=== PATIENT | male | born 1955 | race Caucasian/White ===

== ENCOUNTER 2016-11-23 15:39 | Outpatient (CLI) | payer OTHER | END 2016-11-23 15:40 | disposition home or self-care (01) | DX: I82.612 Acute embolism and thrombosis of superficial veins of left upper extremity (principal) ==

== ENCOUNTER 2016-12-24 08:05 | Outpatient (CLI) | payer OTHER | END 2016-12-24 08:06 | disposition home or self-care (01) | DX: E78.1 Pure hyperglyceridemia (principal); E29.1 Testicular hypofunction; E88.81 Metabolic syndrome and other insulin resistance ==

== ENCOUNTER 2017-04-18 10:33 | Outpatient (CLI) | payer OTHER | END 2017-04-18 10:34 | disposition home or self-care (01) | LOC: RT 10:33 | PROVIDERS: ATTEND Nurse Anesthetist, Certified Registered | DX: Z01.810 Encounter for preprocedural cardiovascular examination (principal); M70.21 Olecranon bursitis, right elbow | CPT/HCPCS: 93005 ==

== ENCOUNTER 2017-04-19 07:32 | Day surgery (SDC) | payer OTHER ==
[~2017-04-19 07:32] MED LIST: LACTATED RINGERS 1,000 ML IV ONE; ceFAZolin 2 GM/50 ML 50 ML IV ONE
[2017-04-19] MEDS ORDERED: PROPOFOL 200 MG/20 ML VIAL IVP ONE (08:25)
[2017-04-19] MEDS ORDERED: DEXAMETHASONE 4 MG/ML VIAL IVP ONE (08:25)
[2017-04-19] MEDS ORDERED: LIDOCAINE-MPF 2% 5 ML VIAL IM ONE (08:25)
[2017-04-19] MEDS ORDERED: ONDANSETRON 4 MG/2 ML VIAL IVP ONE (08:25)
[2017-04-19] MEDS ORDERED: fentaNYL 100 MCG/2 ML VIAL IVP ONE (08:25)
[2017-04-19] MEDS ORDERED: KETOROLAC 30 MG/ML VIAL IVP ONE (08:25)
[2017-04-19] MEDS ORDERED: MIDAZOLAM 2 MG/2 ML VIAL IVP ONE (08:25)
[2017-04-19] MEDS ORDERED: LIDOCAINE 1%-EPI 1:100000 20 ML MDV SUBQ ONE ×2 (08:38)
[2017-04-19] MEDS ORDERED: BUPIVACAINE 0.5% PF 30 ML VIAL SUBQ ONE ×2 (08:38)
[2017-04-19 10:25] VITALS: BP 128/78
--- NOTE | 2017-04-19 11:42 | OPERATIVE REPORT ---
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 POSTOPERATIVE DIAGNOSIS: Right elbow chronic olecranon bursitis with gout involvement and olecranon s pur. NAME OF PROCEDURE: Right elbow bursectomy and debridement of skin and soft tissue and bursal tissue w ith bony resection of olecranon spur. SURGEON: Rani Clay MD ANESTHESIA: General by Bertram. INDICATIONS FOR SURGERY: The patient is a 72-year-old male with chronic painful swelling of his right elbow and a nonresponse to conservative management. The patient also has tenderness in that area. He has a prior history of gout in his toe, but has not had known tophi or extraarticular gout. FINDINGS AT SURGERY: At bursectomy, the patient was found to have a gout infiltrated bursa with large clumps of white crystals in a toothpaste consistency. The patient's spur was small and was able to b e removed with a rongeur. DESCRIPTION OF OPERATIVE PROCEDURE: The patient was taken to the operating room, was given a general anesthetic. Tourniquet was placed on his upper arm, and his elbow and arm were sterilely prepped and draped in standard fashion. A curved incision was made around the olecranon area through skin only an d then scissors were used to define and develop a plane between the dermis and the bursa. There was v mariah little subcutaneous tissue in the area. The bursa was removed in its entirety, a rongeur being us ed also to remove small clumps of gouty material. An incision was made in the periosteum over the ole cranon to allow rongeur removal of the spur in that area. The area was flushed and cautery control bl eeding with the tourniquet deflated. Finally, closure was undertaken with 3-0 Vicryl subcutaneous and 4-0 Monocryl subcuticular. Sterile compressive dressings were applied. The patient was placed in a p osterior arm splint and then taken to the recovery room in stable condition. ESTIMATED BLOOD LOSS: Minimal. COMPLICATIONS: None. SPONGE AND NEEDLE COUNTS: Correct. JOB #: [id number] EXT JOB #:[id number]
== END 2017-04-19 07:33 | disposition home or self-care (01) ==
LOC: SDS 07:32
PROVIDERS: ATTEND Orthopaedic Surgery
PROC: 0PBK0ZZ Excision of Right Ulna, Open Approach (ICD-10-PCS; 2017-04-19)
PROC: 0MB30ZZ Excision of Right Elbow Bursa and Ligament, Open Approach (ICD-10-PCS; principal; 2017-04-19 08:30)
DX: M70.21 Olecranon bursitis, right elbow (principal); M10.9 Gout, unspecified; M77.8 Other enthesopathies, not elsewhere classified; I10 Essential (primary) hypertension; R06.81 Apnea, not elsewhere classified; K21.9 Gastro-esophageal reflux disease without esophagitis; G25.81 Restless legs syndrome; Z96.652 Presence of left artificial knee joint; F32.9 Major depressive disorder, single episode, unspecified; F41.9 Anxiety disorder, unspecified
CPT/HCPCS: 24105; 24120; J0690; J7120; 88305

== ENCOUNTER 2017-05-02 09:25 | Outpatient (CLI) | payer OTHER | END 2017-05-02 09:26 | disposition home or self-care (01) | LOC: SC 09:25 | PROVIDERS: ATTEND Internal Medicine Pulmonary Disease | DX: G47.33 Obstructive sleep apnea (adult) (pediatric) (principal); G47.61 Periodic limb movement disorder; G47.00 Insomnia, unspecified; R09.02 Hypoxemia | CPT/HCPCS: 99212; 99214 ==

== ENCOUNTER 2017-05-30 10:19 | Outpatient (CLI) | payer OTHER | END 2017-05-30 10:20 | disposition home or self-care (01) | LOC: SC 10:19 | PROVIDERS: ATTEND Internal Medicine Pulmonary Disease | DX: G47.33 Obstructive sleep apnea (adult) (pediatric) (principal); G25.81 Restless legs syndrome | CPT/HCPCS: 99212; 99213 ==

== ENCOUNTER 2017-06-22 09:50 | Outpatient (CLI) | payer OTHER ==
[2017-06-22 12:38] LABS: BASOPHILS # (AUTO) 0.1 10^3/uL (0.0-0.1); BASOPHILS % (AUTO) 1.3 %; EOSINOPHILS # (AUTO) 0.2 10^3/uL (0.0-0.7); EOSINOPHILS % (AUTO) 2.5 %; HCT - HEMATOCRIT 48.5 % (42.0-52.0); HGB - HEMOGLOBIN 16.7 g/dL (14.0-18.0); LYMPHOCYTES # (AUTO) 1.7 10^3/uL (1.5-3.5); LYMPHOCYTES % (AUTO) 27.4 %; MEAN CORPUSCULAR HEMOGLOBIN 31.9 pg (27.0-31.0); MEAN CORPUSCULAR HGB CONC 34.3 g/dL (32.0-36.0); MEAN CORPUSCULAR VOLUME 92.8 fL (80.0-94.0); MEAN PLATELET VOLUME 8.2 fL (7.4-11.4); MONOCYTES # (AUTO) 0.6 10^3/uL (0.0-1.0); MONOCYTES % (AUTO) 9.2 %; NEUTROPHILS # (AUTO) 3.7 10^3/uL (1.5-6.6); NEUTROPHILS % (AUTO) 59.6 %; NUCLEATED RED BLOOD CELLS AUTO 0.1 /100WBC; RED BLOOD COUNT 5.23 10^6/uL (4.70-6.10); RED CELL DISTRIBUTION WIDTH 13.8 % (12.0-15.0); UNCORRECTED WHITE BLOOD COUNT 6.2 x10^3/uL; WHITE BLOOD COUNT 6.2 x10^3/uL (4.8-10.8)
[2017-06-22 13:07] LABS: PSA TOTAL 1.49 ng/mL (0.000-2.000)
[2017-06-22 13:14] LABS: ALBUMIN/GLOBULIN RATIO 1.8 (1.0-2.2); BILIRUBIN,TOTAL 0.7 mg/dL (0.2-1.0); CALCIUM 9.5 mg/dL (8.5-10.3); CREATININE 0.9 mg/dL (0.6-1.2); HEMOGLOBIN A1C 0.71 g/dL; POTASSIUM 4.2 mmol/L (3.5-5.0); TOTAL PROTEIN 6.6 g/dL (6.7-8.2)
== END 2017-06-22 09:51 ==
LOC: LAB.WCP 09:50
PROVIDERS: ATTEND Family Medicine
DX: E88.81 Metabolic syndrome and other insulin resistance (principal); G25.81 Restless legs syndrome; E29.1 Testicular hypofunction
CPT/HCPCS: 36415; 80053; 82728; 83036; 83540; 84153; 84403; 84466; 85025

== ENCOUNTER 2017-06-30 09:23 | Outpatient (CLI) | payer OTHER | END 2017-06-30 09:24 | disposition home or self-care (01) | LOC: SC 09:23 | PROVIDERS: ATTEND Internal Medicine Pulmonary Disease | DX: G47.33 Obstructive sleep apnea (adult) (pediatric) (principal); G25.81 Restless legs syndrome | CPT/HCPCS: 99212; 99213 ==

== ENCOUNTER 2017-08-12 04:23 | Emergency (ER) | payer OTHER ==
[2017-08-12] MEDS ORDERED: BUPIVACAINE 0.5% PF 30 ML VIAL ONE (04:53)
[2017-08-12 05:24] LABS: CC,BF RBC 28154 /mm^3
--- NOTE | 2017-08-12 05:24 | ED Physician Documentation ---
PD HPI UPPER EXT INJURY - Stated complaint Stated Complaint: R ELBOW PX - Chief complaint Chief Complaint: Wound - History obtained from History obtained from: Patient - History of Present Illness Location: Right, Elbow Where injury occurred: Home Timing - onset: Chronic Timing - details: Gradual onset, Still present Improved by: Immobilization Worsened by: Moving, Palpating Associated symptoms: Swelling Contributing factors: Prior ortho surgery. No: Prosthetic joint Similar symptoms before: Work up / diagnostics, Treatment, Follow up - Additonal information Additional information: Patient is a 62 year old male with a history of bursitis who is presenting to the emergency department for elbow pain. Patient has had recurrent bursitis and has had surgery on his elbow for bursa removal. Patient states that over the last few days he has had worsening pain and swelling in his joint so he came in for evaluation. Review of Systems Constitutional: denies: Fever, Chills Eyes: reports: Reviewed and negative Ears: reports: Reviewed and negative Nose: reports: Reviewed and negative Throat: reports: Reviewed and negative Cardiac: denies: Chest pain / pressure GI: denies: Nausea, Vomiting Skin: reports: Rash Musculoskeletal: reports: Joint pain, Joint swelling Neurologic: denies: Generalized weakness, Focal weakness, Numbness Immunocompromised: denies: Immunocompromised PD PAST MEDICAL HISTORY - Past Medical History Past Medical History: Yes Cardiovascular: Hypertension Respiratory: Sleep apnea Neuro: None Endocrine/Autoimmune: None GI: None : None HEENT: None, Chronic hearing loss Psych: None Musculoskeletal: Osteoarthritis Derm: Other Other Past Medical History: Bursitis - Past Surgical History Past Surgical History: Yes General: Hiatal hernia repair Ortho: Knee replacement - Present Medications Home Medications: Ambulatory Orders Medication Instructions Recorded Confirmed Ascorbic Acid/Bioflavonoids [Vit 1 each PO DAILY 03/20/13 08/12/17 C-Bioflavonoids Tab SA] Fenofibrate Nanocrystallized 160 mg PO QDAC 03/20/13 08/12/17 [Triglide] Hydrocodone/Acetaminophen [Vicodin 1 each PO Q6H PRN 03/20/13 08/12/17 Hp 10-300 mg Tablet] Metoprolol/Hydrochlorothiazide 1 each PO DAILY 03/20/13 08/12/17 [Metoprolol-Hctz 50-25 mg Tab] Multivits-Min/FA/Lycopene/Lut 1 each PO DAILY 03/20/13 08/12/17 [Centrum Silver Tablet] Pramipexole Di-HCl [Mirapex] 1 mg PO QDAC 03/20/13 08/12/17 Testosterone [Fortesta] 40 gm TD DAILY 03/20/13 08/12/17 Methylphenidate HCl [Ritalin] 30 mg ORAL DAILY 10/24/16 08/12/17 Esomeprazole Magnesium [Nexium] 40 mg PO BID 04/18/17 08/12/17 Gabapentin 300 mg PO TID 08/12/17 08/12/17 Hydrocodone/Acetaminophen 1 - 2 each PO Q6H PRN #7 tablet 08/12/17 [Hydrocodon-Acetaminophen 5-325] - Allergies Allergies/Adverse Reactions: Allergies Allergy/AdvReac Type Severity Reaction Status Date / Time No Known Drug Allergies Allergy Verified 08/12/17 04:28 - Social History Does the pt smoke?: No Smoking Status: Never smoker Does the pt drink ETOH?: Yes Does the pt have substance abuse?: No - Immunizations Immunizations are current?: Yes - POLST Patient has POLST: No PD ED PE NORMAL - Vitals Vital signs reviewed: Yes - General General: Alert and oriented X 3, No acute distress - HEENT HEENT: Atraumatic, PERRL - Neck Neck: Supple, no meningeal sign - Cardiac Cardiac: RRR, No murmur - Respiratory Respiratory: No respiratory distress - Abdomen Abdomen: Non distended - Neuro Neuro: Alert and oriented X 3, No motor deficit, No sensory deficit, Normal speech - Psych Psych: Normal mood PD ED PE EXPANDED - Extremities Extremities: Right elbow (tenderness and swelling of right elbow) Results - Vitals Vitals: Vital Signs - 24 hr 08/12/17 04:25 Temperature 387.0 C H Heart Rate 81 Respiratory 18 Rate Blood Pressure 158/85 H O2 Saturation 96 Oxygen O2 Source [With Activity] Room air O2 Source Room air - Labs Labs: Laboratory Tests 08/12/17 05:00 Fluid Source SYNOVIAL Fluid Color RED Fluid Clarity HAZY Fluid WBC 1881 Fluid RBC 10621 Procedures - Arthrocentesis Joint: Elbow Preparation: Sterile prep and drape, Ultrasound used Anesthesia: Marcaine 0.5% Fluid: Sent for cell count, Sent for crystals, Sent for culture, Sent for gram stain Aftercare: No complications, Patient tolerated well PD MEDICAL DECISION MAKING - ED course Complexity details: reviewed old records, reviewed results, re-evaluated patient , considered differential, d/w patient ED course: Patient was seen and examined at bedside. elbow was tapped as described above. there was no sign of septic joint. Patient required no further work up and was stable for discharge with outpatient follow up. Departure - Departure Disposition: 01 Home, Self Care Clinical Impression: Bursitis of right elbow Condition: Good Instructions: ED Bursitis Elbow Olecranon Follow-Up: Juan Christiansen MD [Provider Admit Priv/Credential] - Prescriptions: Hydrocodone/Acetaminophen [Hydrocodon-Acetaminophen 5-325] 1 - 2 each PO Q6H PRN #7 tablet PRN Reason: pain Comments: Your symptoms today are likely being caused by bursitis. there is no sign of infection at this time. You will need to follow up with the orthopedic group for further evaluation and care. You can continue with your current pain management.
[2017-08-12] MEDS ORDERED: oxyCOD/ACETAMIN 5 MG/325 MG TABLET PO STA (05:32)
[2017-08-12] MEDS ORDERED: oxyCOD/ACETAMIN 5 MG/325 MG TABLET PO ONE (05:39)
[2017-08-12 05:41] LABS: BF CLARITY HAZY; BF COLOR RED
[2017-08-12 05:56] LABS: LYMPHOCYTES %,BODY FLUID 12; MONOCYTES %,BODY FLUID 25 %; NEUTROPHILS %, BF 63 %
[2017-08-12 06:00] VITALS: BP 114/65
== END 2017-08-12 05:57 | disposition home or self-care (01) ==
LOC: ED 04:23
DX: M70.31 Other bursitis of elbow, right elbow (principal); I10 Essential (primary) hypertension; Z96.659 Presence of unspecified artificial knee joint
CPT/HCPCS: 20605; 87070; 87205; 89051; 89060; 99283; A9270

== ENCOUNTER 2017-09-27 08:41 | Outpatient (CLI) | payer OTHER | END 2017-09-27 08:42 | disposition home or self-care (01) | LOC: SC 08:41 | PROVIDERS: ATTEND Nurse Practitioner Family | DX: Z53.9 Procedure and treatment not carried out, unspecified reason (principal) ==

== ENCOUNTER 2017-10-19 14:53 | Outpatient (CLI) | payer OTHER | END 2017-10-19 14:54 | disposition home or self-care (01) | LOC: SC 14:53 | PROVIDERS: ATTEND Nurse Practitioner Family | DX: G47.33 Obstructive sleep apnea (adult) (pediatric) (principal) | CPT/HCPCS: 99212; 99214 ==

== ENCOUNTER 2017-12-09 08:23 | Outpatient (CLI) | payer OTHER ==
[2017-12-09 12:27] LABS: BASOPHILS # (AUTO) 0.1 10^3/uL (0.0-0.1); EOSINOPHILS # (AUTO) 0.2 10^3/uL (0.0-0.7); EOSINOPHILS % (AUTO) 3.7 %; HGB - HEMOGLOBIN 16.6 g/dL (14.0-18.0); LYMPHOCYTES # (AUTO) 1.9 10^3/uL (1.5-3.5); LYMPHOCYTES % (AUTO) 30.2 %; MEAN CORPUSCULAR HGB CONC 35.7 g/dL (32.0-36.0); MEAN CORPUSCULAR VOLUME 89.7 fL (80.0-94.0); MEAN PLATELET VOLUME 7.9 fL (7.4-11.4); MONOCYTES # (AUTO) 0.6 10^3/uL (0.0-1.0); MONOCYTES % (AUTO) 10.1 %; NEUTROPHILS # (AUTO) 3.4 10^3/uL (1.5-6.6); PLT - PLATELET COUNT 228 10^3/uL (130-450); RED BLOOD COUNT 5.18 10^6/uL (4.70-6.10); RED CELL DISTRIBUTION WIDTH 13.3 % (12.0-15.0); WHITE BLOOD COUNT 6.2 x10^3/uL (4.8-10.8)
[2017-12-09 12:30] LABS: ALBUMIN 4.2 g/dL (3.2-5.5); ALBUMIN/GLOBULIN RATIO 1.8 (1.0-2.2); ALKALINE PHOSPHATASE 43 IU/L (42-121); ALT ALANINE AMINOTRANSFERASE 52 IU/L (10-60); AST ASPARTATE AMINOTRANSFERASE 30 IU/L (10-42); BILIRUBIN,TOTAL 0.8 mg/dL (0.2-1.0); BUN - BLOOD UREA NITROGEN 14 mg/dL (6-20); CALCIUM 8.7 mg/dL (8.5-10.3); CARBON DIOXIDE - CO2 29 mmol/L (21-32); CHLORIDE 102 mmol/L (101-111); CHOLESTEROL 199 mg/dL; GFR - MDRD 76 (>89); GLUCOSE 110 mg/dL (70-100); HDL CHOLESTEROL 33 mg/dL; LDL CHOLESTEROL,CALCULATED 88 mg/dL; LDL/HDL RATIO 2.7 (<3.6); SODIUM 136 mmol/L (135-145); TOTAL PROTEIN 6.6 g/dL (6.7-8.2); VLDL CHOLESTEROL 78 mg/dL
== END 2017-12-09 08:24 | disposition home or self-care (01) ==
LOC: LAB.WCP 08:23
PROVIDERS: ATTEND Family Medicine
DX: E78.1 Pure hyperglyceridemia (principal); I10 Essential (primary) hypertension
CPT/HCPCS: 36415; 80053; 80061; 83721; 85025

== ENCOUNTER 2018-01-16 09:27 | Outpatient (CLI) | payer OTHER | END 2018-01-16 09:28 | disposition home or self-care (01) | LOC: SC 09:27 | PROVIDERS: ATTEND Nurse Practitioner Family | DX: G47.33 Obstructive sleep apnea (adult) (pediatric) (principal); G47.00 Insomnia, unspecified | CPT/HCPCS: 99212; 99214 ==

== ENCOUNTER 2018-01-26 09:11 | Day surgery (SDC) | payer OTHER ==
[2018-01-26] MEDS ORDERED: LACTATED RINGERS 1,000 ML IV ONE (09:23)
[2018-01-26] MEDS ORDERED: fentaNYL 250 MCG/5 ML VIAL IVP ONE (10:14)
[2018-01-26] MEDS ORDERED: MIDAZOLAM 2 MG/2 ML VIAL IVP ONE (10:14)
[2018-01-26 11:42] VITALS: BP 142/81
== END 2018-01-26 09:12 | disposition home or self-care (01) ==
LOC: SDS 09:11
PROVIDERS: ATTEND Surgery
PROC: 0DB68ZX Excision of Stomach, Via Natural or Artificial Opening Endoscopic, Diagnostic (ICD-10-PCS; 2018-01-26)
PROC: 0DBK8ZZ Excision of Ascending Colon, Via Natural or Artificial Opening Endoscopic (ICD-10-PCS; principal; 2018-01-26 10:30)
PROC: 0DBN8ZZ Excision of Sigmoid Colon, Via Natural or Artificial Opening Endoscopic (ICD-10-PCS; 2018-01-26 10:30)
DX: Z12.11 Encounter for screening for malignant neoplasm of colon (principal); D12.2 Benign neoplasm of ascending colon; D12.5 Benign neoplasm of sigmoid colon; K64.8 Other hemorrhoids; K64.4 Residual hemorrhoidal skin tags; K21.9 Gastro-esophageal reflux disease without esophagitis; K44.9 Diaphragmatic hernia without obstruction or gangrene; G47.30 Sleep apnea, unspecified; F41.9 Anxiety disorder, unspecified; Z87.891 Personal history of nicotine dependence
CPT/HCPCS: 43239; 45380; J3010; J7120

== ENCOUNTER 2018-02-21 08:47 | Outpatient (CLI) | payer OTHER | END 2018-02-21 08:48 | disposition home or self-care (01) | LOC: SC 08:47 | PROVIDERS: ATTEND Nurse Practitioner Family | DX: G47.33 Obstructive sleep apnea (adult) (pediatric) (principal) | CPT/HCPCS: 99212; 99214 ==

== ENCOUNTER 2018-06-29 14:42 | Outpatient (CLI) | payer OTHER ==
--- NOTE | 2018-06-29 22:02 | Ultrasound Report ---
Procedure Date: 06/29/2018 Accession Number: [id number] / [id number] Procedure: US - Duplex Lwr Ext Arterial Bilat CPT Code: FULL RESULT: EXAM: Bilateral Lower Extremity Arterial Doppler Ultrasound EXAM DATE: 06/29/2018 05:00 PM. CLINICAL HISTORY: Peripheral vascular disease, unspecified. Former smoker. Abnormal lipids. TECHNIQUE: Real-time sonographic vascular imaging was performed by the seasonal sales associate, utilizing color-flow, Doppler flow, and spectral analysis. Multiple client services representative static images were saved for review. COMPARISON: None. FINDINGS: Right Leg: CLASS 1 OWNER OPERATOR: PSV 102 cm/sec. Tri waveform. PSFA: PSV 78 cm/sec. Tri waveform. MSFA: PSV 67 cm/sec. Tri waveform. DSFA: PSV 82 cm/sec. Tri waveform. PFA: PSV 71 cm/sec. Tri waveform. POP: PSV 51 cm/sec. Tri waveform. SHEEBA: PSV 70 cm/sec. Tri waveform. BEAN SNIPPER: PSV 57 cm/sec. Tri waveform. PER: PSV 54 cm/sec. Tri waveform. DPA: PSV 51 cm/sec. Tri waveform. Left Leg: CLASS 1 OWNER OPERATOR: PSV 90 cm/sec. Tri waveform. PSFA: PSV 63 cm/sec. Tri waveform. MSFA: PSV 65 cm/sec. Tri waveform. DSFA: PSV 96 cm/sec. Tri waveform. PFA: PSV 55 cm/sec. Tri waveform. POP: PSV 55 cm/sec. Tri waveform. SHEEBA: PSV 65 cm/sec. Tri waveform. BEAN SNIPPER: PSV 89 cm/sec. Tri waveform. PER: PSV 68 cm/sec. Tri waveform. DPA: PSV 55 cm/sec. Tri waveform. IMPRESSION: No evidence of hemodynamically significant arterial stenosis in right or left lower extremities. RADIA
== END 2018-06-29 14:43 | disposition home or self-care (01) ==
LOC: DI 14:42
PROVIDERS: ATTEND Family Medicine
DX: I73.9 Peripheral vascular disease, unspecified (principal)
CPT/HCPCS: 93925

== ENCOUNTER 2018-07-31 14:05 | Outpatient (CLI) | payer OTHER | END 2018-07-31 14:06 | disposition critical access hospital (66) | LOC: EMS 14:05 | PROVIDERS: ATTEND Surgery | DX: R42 Dizziness and giddiness (principal); R11.2 Nausea with vomiting, unspecified; R61 Generalized hyperhidrosis | CPT/HCPCS: A0425; A0427 ==

== ENCOUNTER 2018-07-31 14:38 | Emergency (ER) | payer OTHER ==
[2018-07-31] MEDS ORDERED: ONDANSETRON 4 MG/2 ML VIAL IVP STA (14:44)
[2018-07-31] MEDS ORDERED: SODIUM CHLORIDE 0.9% 1,000 ML IV ONE (14:44)
[2018-07-31] MEDS: MECLIZINE 12.5 MG TABLET PO STA ×2 (14:59→18:19)
[2018-07-31 15:37] LABS: BASOPHILS # (AUTO) 0.1 10^3/uL (0.0-0.1); BASOPHILS % (AUTO) 0.8 %; EOSINOPHILS # (AUTO) 0.1 10^3/uL (0.0-0.7); EOSINOPHILS % (AUTO) 1.2 %; HGB - HEMOGLOBIN 15.7 g/dL (14.0-18.0); LYMPHOCYTES # (AUTO) 1.4 10^3/uL (1.5-3.5); LYMPHOCYTES % (AUTO) 15.3 %; MEAN CORPUSCULAR HEMOGLOBIN 32.4 pg (27.0-31.0); MEAN CORPUSCULAR HGB CONC 34.7 g/dL (32.0-36.0); MEAN CORPUSCULAR VOLUME 93.3 fL (80.0-94.0); MEAN PLATELET VOLUME 7.8 fL (7.4-11.4); MONOCYTES # (AUTO) 0.6 10^3/uL (0.0-1.0); MONOCYTES % (AUTO) 6.3 %; NEUTROPHILS # (AUTO) 6.8 10^3/uL (1.5-6.6); NEUTROPHILS % (AUTO) 76.4 %; PLT - PLATELET COUNT 228 10^3/uL (130-450); RED BLOOD COUNT 4.86 10^6/uL (4.70-6.10); RED CELL DISTRIBUTION WIDTH 13.5 % (12.0-15.0); WHITE BLOOD COUNT 8.9 x10^3/uL (4.8-10.8)
[2018-07-31 15:46] LABS: CALCIUM 9.3 mg/dL (8.5-10.3)
--- NOTE | 2018-07-31 16:02 | ED Physician Documentation ---
History of Present Illness - Stated complaint Stated Complaint: DIZZY - Chief complaint Chief Complaint: Cardiac - Additonal information Additional information: hx from pt 63 male developed severe vertigo with NV and diaphoresis at noon called 911 and en route developed CP as well no hx same no focal numbness or weakness EKG [employer] showed very slight ST elev but upon arrival in ED EKG by EMS and ER very similar to prior Review of Systems Constitutional: reports: Sweats. denies: Fever, Chills Cardiac: reports: Chest pain / pressure. denies: Palpitations Respiratory: denies: Dyspnea GI: reports: Nausea, Vomiting. denies: Abdominal Pain : denies: Dysuria Neurologic: reports: Other (vertigo). denies: Focal weakness, Numbness, Difficulty speaking, Headache Endocrine: denies: Easy bruising / bleeding Immunocompromised: denies: Immunocompromised PD PAST MEDICAL HISTORY - Past Medical History Cardiovascular: Hypertension Respiratory: Sleep apnea Endocrine/Autoimmune: None GI: None : None HEENT: None, Chronic hearing loss Psych: None Musculoskeletal: Osteoarthritis Derm: Other - Past Surgical History Past Surgical History: Yes General: Hiatal hernia repair Ortho: Knee replacement - Present Medications Home Medications: Ambulatory Orders Medication Instructions Recorded Confirmed Ascorbic Acid/Bioflavonoids [Vit 1 each PO DAILY 03/20/13 01/25/18 C-Bioflavonoids Tab SA] Fenofibrate Nanocrystallized 160 mg PO QDAC 03/20/13 01/25/18 [Triglide] Hydrocodone/Acetaminophen [Vicodin 1 each PO Q6H PRN 03/20/13 01/26/18 Hp 10-300 mg Tablet] Multivits-Min/FA/Lycopene/Lut 1 each PO DAILY 03/20/13 01/25/18 [Centrum Silver Tablet] Pramipexole Di-HCl [Mirapex] 1 mg PO QDAC 03/20/13 01/25/18 Testosterone [Fortesta] 40 gm TD DAILY 03/20/13 01/25/18 Gabapentin 300 mg PO TID 08/12/17 01/25/18 Magnesium Citrate 07/31/18 Meclizine [Antivert] 25 mg PO Q6H PRN #20 tablet 07/31/18 Ondansetron Odt [Zofran] 4 mg TL Q6H PRN #10 tablet 07/31/18 Pantoprazole [Protonix] 40 mg PO 07/31/18 Pravastatin [Pravachol] 0 mg 07/31/18 Tadalafil [Cialis] 5 mg PO 07/31/18 buPROPion [Wellbutrin Sr] 07/31/18 hydrOXYzine pamoate [Hydroxyzine 07/31/18 Pamoate] - Allergies Allergies/Adverse Reactions: Allergies Allergy/AdvReac Type Severity Reaction Status Date / Time No Known Drug Allergies Allergy Verified 07/31/18 14:51 - Social History Does the pt smoke?: No Smoking Status: Never smoker Does the pt drink ETOH?: Yes Does the pt have substance abuse?: No - Immunizations Immunizations are current?: Yes - POLST Patient has POLST: No PD ED PE NORMAL - Vitals Vital signs reviewed: Yes - General General: Alert and oriented X 3 - HEENT HEENT: PERRL, EOMI (but severe vertigo with EOMI, prefers eyes closed), Ears normal - Neck Neck: Supple, no meningeal sign - Cardiac Cardiac: RRR - Respiratory Respiratory: No respiratory distress - Neuro Neuro: Alert and oriented X 3, distributing clerk 2-12 intact, No motor deficit Eye Opening: Spontaneous Motor: Obeys Commands Verbal: Oriented GCS Score: 15 Results - Vitals Vitals: Vital Signs - 24 hr 07/31/18 07/31/18 14:40 15:40 Temperature 35.9 C L Heart Rate 69 70 Respiratory 30 H 20 Rate Blood Pressure 145/115 H 139/92 H O2 Saturation 97 97 Oxygen O2 Source [] Room air O2 Source Room air - EKG (time done) 1447 Rate: Rate (enter#) (66) Rhythm: NSR [place]: Normal Intervals: Normal [place] QRS: Normal Ischemia: Normal ST segments, Other (mild ST elevprecordial concave up and similar to prior) - Labs Labs: Laboratory Tests 07/31/18 07/31/18 07/31/18 15:10 15:10 15:10 WBC 8.9 RBC 4.86 Hgb 15.7 Hct 45.3 MCV 93.3 MCH 32.4 H MCHC 34.7 RDW 13.5 Plt Count 228 MPV 7.8 Neut # (Auto) 6.8 H Lymph # (Auto) 1.4 L [place] # (Auto) 0.6 Eos # (Auto) 0.1 Baso # (Auto) 0.1 Absolute Nucleated RBC 0.01 Nucleated RBC % 0.1 Sodium 140 Potassium 4.3 Chloride 106 Carbon Dioxide 27 Anion Gap 7.0 BUN 14 Creatinine 1.0 Estimated GFR (MDRD) 76 L Glucose 139 H Calcium 9.3 Troponin I < 0.04 07/31/18 16:50 WBC RBC Hgb Hct MCV MCH MCHC RDW Plt Count MPV Neut # (Auto) Lymph # (Auto) [place] # (Auto) Eos # (Auto) Baso # (Auto) Absolute Nucleated RBC Nucleated RBC % Sodium Potassium Chloride Carbon Dioxide Anion Gap BUN Creatinine Estimated GFR (MDRD) Glucose Calcium Troponin I < 0.04 PD MEDICAL DECISION MAKING - ED course ED course: sx much improved with meclizine, no other neuro sx, likely periph has CVP en route EKG unchanged trop 1 neg, will check a 3 hr 2nd trop neg and all sx eleno will dc with meclizine and zofran - Sepsis Event Vital Signs: Vital Signs - 24 hr 07/31/18 07/31/18 14:40 15:40 Temperature 35.9 C L Heart Rate 69 70 Respiratory 30 H 20 Rate Blood Pressure 145/115 H 139/92 H O2 Saturation 97 97 Oxygen O2 Source [] Room air O2 Source Room air Departure - Departure Disposition: 01 Home, Self Care Clinical Impression: Vertigo Chest pain Qualifiers: Chest pain type: unspecified Qualified Code(s): R07.9 - Chest pain, unspecified Condition: Good Instructions: ED Chest Pain Atypical Unkn Cause, Meclizine, ED BPV Vertigo Follow-Up: Lizzy Rodriguez DO [Primary Care Provider] - Prescriptions: Meclizine [Antivert] 25 mg PO Q6H PRN #20 tablet PRN Reason: Dizziness Ondansetron Odt [Zofran] 4 mg TL Q6H PRN #10 tablet PRN Reason: Nausea / Vomiting Comments: Your labs were fine Your EKG was unchanged from previous EKGs and the blood tests for a heart attack were negative Besides the dizziness you did not have other signs of a stroke and the symptoms resolved with meclizine - so i think this dizziness is due to a inner ear problem not a brain problem. Since you are feeling better now and your work up is reassuring, I think it is safe for you to go home I have prescribed more medication for nausea and dizziness. You should not drive for at least three days - until all the dizziness has resolved Return if worse in any way Forms: Activity restrictions
[2018-07-31] MEDS ORDERED: MECLIZINE 12.5 MG TABLET PO STA (18:01)
--- NOTE | 2018-07-31 18:41 | CT Report ---
Reason: vertigo Procedure Date: 07/31/2018 Accession Number: [id number] / [id number] Procedure: CT - Head W/O CPT Code: FULL RESULT: EXAM: CT HEAD EXAM DATE: 07/31/2018 06:19 PM. CLINICAL HISTORY: Vertigo. COMPARISON: None. TECHNIQUE: Multiaxial CT images were obtained from the foramen magnum to the vertex. Reformats: Sagittal and coronal. IV contrast: None. In accordance with CT protocol optimization, one or more of the following dose reduction techniques were utilized for this exam: automated exposure control, adjustment of mA and/or KV based on patient size, or use of iterative reconstructive technique. FINDINGS: Parenchyma: No intraparenchymal hemorrhage. No evidence of mass, midline shift, or CT findings of infarction. Aranda-white differentiation is distinct. Extraaxial Spaces: Normal for age. No subdural or epidural collections identified. Ventricles: Normal in size and position. Sinuses and Orbits: Imaged paranasal sinuses, orbits, and mastoids show no significant abnormality. Bones: No evidence of fracture or calvarial defect. Other: None. IMPRESSION: No acute intracranial CT abnormality. RADIA
[2018-07-31 19:14] VITALS: BP 134/95
== END 2018-07-31 19:50 | disposition home or self-care (01) ==
LOC: ED 14:38
DX: R42 Dizziness and giddiness (principal); R07.9 Chest pain, unspecified; R11.2 Nausea with vomiting, unspecified; I10 Essential (primary) hypertension
CPT/HCPCS: 36415; 70450; 80048; 84484; 85025; 93005; 96361; 96374; 99284; A9270

== ENCOUNTER 2018-11-20 08:00 | Outpatient (CLI) | payer OTHER | END 2018-11-20 23:59 | disposition home or self-care (01) | LOC: LAB.WCP 08:00 | PROVIDERS: ATTEND Family Medicine | DX: R06.02 Shortness of breath (principal) | CPT/HCPCS: 36415; 85379 ==

== ENCOUNTER 2018-12-12 08:52 | Outpatient (CLI) | payer OTHER ==
--- NOTE | 2018-12-12 10:22 | MRI Report ---
Reason: CERVICAL RADICULOPATHY,LEFT Procedure Date: 12/12/2018 Accession Number: [id number] / [id number] Procedure: MRI - Cervical Spine W/O CPT Code: FULL RESULT: EXAM: MRI CERVICAL SPINE WITHOUT CONTRAST EXAM DATE: 12/12/2018 09:40 AM. CLINICAL HISTORY: Neck pain. Cervical radiculopathy on the left. Neck pain radiates to the left upper extremity. COMPARISONS: CERVICAL SPINE W/O 07/25/2016 10:14 PM. TECHNIQUE: Multiplanar, multisequence T1-weighted and fluid-sensitive sequences of the cervical spine without contrast. Other: None. FINDINGS: Neurologic Structures: The visualized posterior fossa structures are unremarkable. No signal abnormality in the visualized spinal cord. Alignment: Slight degenerative retrolisthesis of C3 on C4. Bone Marrow: Vertebral body heights are maintained. Minimal degenerative endplate signal changes at C5-C6. No acute marrow edema. Interspace Levels/Facets: C1-C2: Unremarkable. C2-C3: Unremarkable. C3-C4: Mildly narrowed disk space. Broad-based posterior disk protrusion indents the ventral thecal sac. Mild central stenosis. Degenerative foraminal stenosis is minimal on the right but at least moderate on the left from asymmetric predominantly left side uncinate process spurring and facet hypertrophy with possible additional asymmetric left intraforaminal disk protrusion. C4-C5: Mild degenerative disk disease. Minimal facet arthropathy. Broad-based disk bulge. Ventral thecal sac indentation but no high-grade central stenosis or cord compression. Patent right neural foramen. At least moderate if not severe foraminal stenosis on the left is present from asymmetric left intraforaminal disk protrusion with osteophyte. C5-C6: Moderate degenerative disk disease. Mild anterior and posterior marginal spurring. Shallow broad-based disk bulge. Mild central stenosis with ventral thecal sac effacement but no cord compression or displacement. Moderate to severe bilateral foraminal stenosis primarily from uncinate process spurring accompanied by a broad-based bulge. Minimal facet arthropathy. C6-C7: Moderate degenerative disk disease. Mild marginal spurring. Broad-based disk bulge. Mild ventral thecal sac indentation. Central stenosis is minimal. No cord impingement. Asymmetric foraminal stenosis, minimal on the right but moderate on the left, asymmetric left intraforaminal disk protrusion with osteophyte is present. C7-T1: Intact disk space. No disk herniation or significant stenosis. Mild facet arthropathy. Musculature: No significant asymmetry or acute edema. Other: No prevertebral soft tissue edema. IMPRESSION: 1. Minimal to mild multilevel central canal stenosis, most prominent at C3-C4 but without evidence for significant cord deformity or signal abnormality. 2. Multilevel degenerative disk disease most severe at C5-C6 and C6-C7. 3. Multilevel degenerative foraminal stenosis is present, especially prominent on the left at C3-C4, on the left at C4-C5, bilaterally at C5-C6, and on the left at C6-C7. RADIA
== END 2018-12-12 08:53 | disposition home or self-care (01) ==
LOC: DI 08:52
PROVIDERS: ATTEND Family Medicine
DX: M50.21 Other cervical disc displacement, high cervical region (principal); M50.31 Other cervical disc degeneration, high cervical region; M48.02 Spinal stenosis, cervical region; M47.9 Spondylosis, unspecified; M43.12 Spondylolisthesis, cervical region
CPT/HCPCS: 72141

== ENCOUNTER 2019-01-15 09:46 | Outpatient (CLI) | payer OTHER ==
--- NOTE | 2019-01-15 14:58 | MRI Report ---
Reason: THORACIC SPINE PAIN Procedure Date: 01/15/2019 Accession Number: [id number] / [id number] Procedure: MRI - Thoracic Spine W/O CPT Code: FULL RESULT: EXAM: MRI THORACIC SPINE WITHOUT CONTRAST EXAM DATE: 01/15/2019 11:44 AM. CLINICAL HISTORY: Thoracic spine pain. COMPARISONS: T-SPINE 04/06/2007 7:58 AM. TECHNIQUE: Multiplanar, multisequence T1-weighted and fluid-sensitive sequences of the thoracic spine from C7 to L1 without contrast. Other: None. FINDINGS: Spinal Canal: Sharply demarcated central cord fluid signal linear structure centered at T12 measuring about 36 mm in length craniocaudal with maximal diameter of 2 mm. Alignment: No interval change. Bone Marrow: Stable relatively hypointense rounded approximately 10 mm region of central T8 body marrow, unchanged from prior, likely an incidental finding, potentially an atypical hemangioma. Thoracic vertebral body heights are maintained. No other evidence for acute or pathologic appearing marrow signal changes. Disk Levels/Facets: C7-T1: Unremarkable. T1-T2: Mild facet arthropathy. No significant stenosis. T2-T3: Mild facet arthropathy. Probable small shallow disk protrusion on the right but no significant stenosis. T3-T4: Minimal facet arthropathy. No stenosis. T4-T5: Unremarkable. T5-T6: Stable small posterior disk protrusion on the right but no significant or progressive stenosis. T6-T7: Unremarkable. T7-T8: Shallow broad-based disk bulge. No focal extrusion or significant stenosis. T8-T9: Progressive but chronic anterior marginal spurring. Mild right and moderate left facet arthropathy. No focal disk extrusion or stenosis. T9-T10: Mild degenerative disease and facet arthropathy. Broad-based posterior disk protrusion with osteophyte. Mild thecal sac indentation but no significant central stenosis or cord impingement. Mild foraminal stenosis. T10-T11: Unremarkable. T11-T12: Mild facet arthropathy. No stenosis. T12-L1: Unremarkable. Musculature: No acute abnormality. Other: None. IMPRESSION: 1. Thin linear central cord fluid signal collection centered at T12. This may be a small syrinx cavity. Ventriculus terminalis may also be considered. Cord edema is less likely. More complete evaluation of the cord which may contain a syrinx could be offered with contrast-enhanced thoracic spine MRI. 2. Mild chronic-appearing degenerative changes at multiple levels, these findings are progressive for example at T8-T9 and T9-T10 but there is no evidence for significant stenosis, acute abnormality or focal neural impingement. 3. Stable nonspecific focus of marrow signal discrepancy in the T8 body, likely incidental. RADIA
== END 2019-01-15 09:47 | disposition home or self-care (01) ==
LOC: DI 09:46
PROVIDERS: ATTEND Physical Medicine & Rehabilitation
DX: M51.24 Other intervertebral disc displacement, thoracic region (principal); M47.9 Spondylosis, unspecified; R93.7 Abnormal findings on diagnostic imaging of other parts of musculoskeletal system
CPT/HCPCS: 72146

== ENCOUNTER 2019-04-19 11:06 | Outpatient (CLI) | payer OTHER | END 2019-04-19 11:07 | disposition home or self-care (01) | LOC: DI 11:06 | PROVIDERS: ATTEND Family Medicine | DX: R00.2 Palpitations (principal); I77.810 Thoracic aortic ectasia; I51.7 Cardiomegaly | CPT/HCPCS: 93306 ==

== ENCOUNTER 2019-05-08 07:19 | Outpatient (CLI) | payer OTHER ==
--- NOTE | 2019-05-08 15:15 | CT Report ---
Reason: WHEEZING Procedure Date: 05/08/2019 Accession Number: [id number] / [id number] Procedure: CT - CHEST WO CPT Code: FULL RESULT: EXAM: CT CHEST EXAM DATE: 05/08/2019 07:36 AM. CLINICAL HISTORY: WHEEZING. COMPARISONS: CHEST 2 VIEW PA/LAT 10/20/2018 10:51 AM. TECHNIQUE: Routine helical CT imaging was performed through the chest. IV contrast: None. Reconstructions: Coronal and sagittal. In accordance with CT protocol optimization, one or more of the following dose reduction techniques were utilized for this exam: automated exposure control, adjustment of mA and/or KV based on patient size, or use of iterative reconstructive technique. FINDINGS: Lungs/Pleura: No nodules, bronchial thickening, consolidation, or edema. Pulmonary vasculature is normal. No pericardial or pleural effusion. No pneumothorax. Mediastinum: Normal. No adenopathy or masses. The heart and great vessels are normal. Bones: No osteoblastic or osteolytic lesions. Mild degenerative changes are noted in the lower thoracic spine. Visualized Abdomen: Fatty liver. No mass or intrahepatic bile duct dilation. Other: Homogeneous enhancement of the thyroid gland. No thyroid nodule or mass. No supraclavicular or axillary lymphadenopathy identified. IMPRESSION: 1. No acute pulmonary process. No concerning lung mass or nodule. 2. No adenopathy. 3. Fatty liver. No mass. 4. No cardiac enlargement, adenopathy or pericardial effusion. RADIA
== END 2019-05-08 07:20 | disposition home or self-care (01) ==
LOC: DI 07:19
PROVIDERS: ATTEND Family Medicine
DX: R06.2 Wheezing (principal); K76.0 Fatty (change of) liver, not elsewhere classified
CPT/HCPCS: 71250

== ENCOUNTER 2019-09-24 11:26 | Outpatient (CLI) | payer OTHER ==
--- NOTE | 2019-09-24 15:57 | Ultrasound Report ---
Reason: DIZZINESS, VERTIGO, HYPERTENSION BENIGN Procedure Date: 09/24/2019 Accession Number: [id number] / [id number] Procedure: US - Carotid Doppler Complete CPT Code: Final Report FULL RESULT: EXAM: BILATERAL CAROTID AND VERTEBRAL ARTERY DUPLEX DOPPLER ULTRASOUND: EXAM DATE: 09/24/2019 12:39 PM CLINICAL HISTORY: Dizziness, vertigo, hypertension benign. COMPARISON: None. TECHNIQUE: Grayscale imaging, color Doppler, and duplex spectral Doppler were used to evaluate the carotid and vertebral arteries bilaterally. Static images were obtained. FINDINGS: No significant plaque is identified in the right or left common or internal carotid arteries. Normal antegrade flow is present in bilateral vertebral arteries. VELOCITIES (cm/sec): Right CCA Mid: PSV 85 cm/sec CCA Dist: PSV 89 cm/sec ICA Prox: PSV 89 cm/sec, EDV 25 cm/sec ICA Mid: PSV 54 cm/sec, EDV 21 cm/sec ICA Dist: PSV 98 cm/sec, EDV 34 cm/sec ECA: PSV 108 cm/sec Vert: PSV 50 cm/sec ICA/CCA: 1.0 Left CCA Mid: PSV 97 cm/sec CCA Dist: PSV 109 cm/sec ICA Prox: PSV 66 cm/sec, EDV 23 cm/sec ICA Mid: PSV 76 cm/sec, EDV 31 cm/sec ICA Dist: PSV 74 cm/sec, EDV 29 cm/sec ECA: PSV 107 cm/sec Vert: PSV 40 cm/sec ICA/CCA: 0.7 ICA diameter stenosis: Right: <50% by velocity and <70% by NASCET criteria. Left: <50% by velocity and <70% by NASCET criteria. IMPRESSION: 1. No significant bilateral carotid artery plaquing. 2. In the right carotid artery there are no elevated carotid artery velocities to suggest hemodynamically significant stenosis. 3. In the left carotid artery there are no elevated carotid artery velocities to suggest hemodynamically significant stenosis. 4. Normal antegrade flow is present in bilateral vertebral arteries. General Recommendations: Stenosis =50% ICA - Follow-up ultrasound 6-12 months Stenosis <50% ICA - High Risk Patient with plaque - Follow-up ultrasound 1-2 years Normal Study but High Risk Patient - Follow-up ultrasound 3-5 years Management recommendations and diagnostic criteria are based on current IAC endorsed standards in Carotid Artery Stenosis: Grayscale and Doppler Ultrasound Diagnosis. Validated velocity measurements with angiographic measurements and velocity criteria are extrapolated from diameter data as defined by the Society of Radiologists in Ultrasound Consensus Conference Radiology 2003; 229;340-346. RADIA
== END 2019-09-24 11:27 | disposition home or self-care (01) ==
LOC: DI 11:26
PROVIDERS: ATTEND Family Medicine
DX: R42 Dizziness and giddiness (principal); I10 Essential (primary) hypertension
CPT/HCPCS: 93880

== ENCOUNTER 2019-12-21 07:05 | Outpatient (CLI) | payer OTHER ==
[2019-12-21 12:46] LABS: BASOPHILS # (AUTO) 0.1 10^3/uL (0.0-0.1); BASOPHILS % (AUTO) 1.1 %; EOSINOPHILS # (AUTO) 0.2 10^3/uL (0.0-0.7); EOSINOPHILS % (AUTO) 3.5 %; HGB - HEMOGLOBIN 16.4 g/dL (14.0-18.0); LYMPHOCYTES # (AUTO) 1.8 10^3/uL (1.5-3.5); LYMPHOCYTES % (AUTO) 31.3 %; MEAN CORPUSCULAR HEMOGLOBIN 32.4 pg (27.0-31.0); MEAN CORPUSCULAR HGB CONC 33.8 g/dL (32.0-36.0); MEAN CORPUSCULAR VOLUME 95.8 fL (80.0-94.0); MONOCYTES # (AUTO) 0.5 10^3/uL (0.0-1.0); MONOCYTES % (AUTO) 9.2 %; NEUTROPHILS % (AUTO) 53.5 %; PLT - PLATELET COUNT 240 10^3/uL (130-450); RED BLOOD COUNT 5.06 10^6/uL (4.70-6.10); RED CELL DISTRIBUTION WIDTH 13.2 % (12.0-15.0); WHITE BLOOD COUNT 5.7 x10^3/uL (4.8-10.8)
[2019-12-21 13:07] LABS: HB2 TOTAL 16.3 g/dL; HEMOGLOBIN A1C 0.62 g/dL; HEMOGLOBIN A1C % 5.6 % (4.6-6.2)
[2019-12-21 13:13] LABS: ALBUMIN 4.2 g/dL (3.2-5.5); ALBUMIN/GLOBULIN RATIO 1.8 (1.0-2.2); ALKALINE PHOSPHATASE 43 IU/L (42-121); ALT ALANINE AMINOTRANSFERASE 50 IU/L (10-60); AST ASPARTATE AMINOTRANSFERASE 32 IU/L (10-42); BILIRUBIN,TOTAL 1.1 mg/dL (0.2-1.0); BUN - BLOOD UREA NITROGEN 17 mg/dL (6-20); CARBON DIOXIDE - CO2 27 mmol/L (21-32); CHLORIDE 103 mmol/L (101-111); CHOL/HDL RATIO 5.2 (<5.0); CHOLESTEROL 203 mg/dL; GFR - MDRD 75 (>89); GLUCOSE 110 mg/dL (70-100); HDL CHOLESTEROL 39 mg/dL; LDL CHOLESTEROL,CALCULATED 102 mg/dL; LDL/HDL RATIO 2.6 (<3.6); SODIUM 138 mmol/L (135-145); TOTAL PROTEIN 6.5 g/dL (6.7-8.2); VLDL CHOLESTEROL 62 mg/dL
== END 2019-12-21 23:59 | disposition home or self-care (01) ==
LOC: LAB.WCP 07:05
PROVIDERS: ATTEND Family Medicine
DX: E88.81 Metabolic syndrome and other insulin resistance (principal); Z12.5 Encounter for screening for malignant neoplasm of prostate
CPT/HCPCS: 36415; 80053; 80061; 81599; 83036; 83721; 84153; 84402; 84403; 85025

== ENCOUNTER 2019-12-26 15:25 | Outpatient (CLI) | payer OTHER ==
--- NOTE | 2019-12-27 11:13 | XRAY Report ---
Reason: KNEE PAIN,LEFT Procedure Date: 12/26/2019 Accession Number: [id number] / [id number] Procedure: XR - Knee 2 View LT CPT Code: Final Report FULL RESULT: EXAM: LEFT KNEE RADIOGRAPHY EXAM DATE: 12/26/2019 03:46 PM. CLINICAL HISTORY: Left knee pain. COMPARISON: None. TECHNIQUE: 2 views. FINDINGS: Bones: No fracture or bone lesion evident. Joints: Medial compartment hemiarthroplasty is in position without complication. The lateral compartment joint space is well-preserved with tiny osteophytes. The patellar compartment demonstrates more moderate osteoarthritis. A small joint effusion noted. Soft Tissues: Normal. No soft tissue swelling. IMPRESSION: 1. Medial compartment hemiarthroplasty without complication evident. 2. Minimal lateral compartment and moderate patellar compartment osteoarthritis. 3. Small joint effusion. RADIA
== END 2019-12-26 15:26 | disposition home or self-care (01) ==
LOC: DI 15:25
PROVIDERS: ATTEND Family Medicine
DX: M17.12 Unilateral primary osteoarthritis, left knee (principal); M25.462 Effusion, left knee; Z96.652 Presence of left artificial knee joint

== ENCOUNTER 2020-03-10 13:49 | Outpatient (CLI) | payer OTHER ==
--- NOTE | 2020-03-10 23:15 | XRAY Report ---
Reason: WHEEZING Procedure Date: 03/10/2020 Accession Number: [id number] / [id number] Procedure: WCP - Chest 2 View X-Ray CPT Code: 42900 Final Report FULL RESULT: EXAM: CHEST RADIOGRAPHY EXAM DATE: 03/10/2020 01:49 PM. CLINICAL HISTORY: WHEEZING. COMPARISON: CHEST 2 VIEW PA/LAT 10/20/2018 10:51 AM. TECHNIQUE: 2 views. FINDINGS: The mediastinal and cardiac silhouettes are normal. There is no focal consolidation, pleural effusion, or pneumothorax. Spinal fusion instrumentation is partially seen in the cervical spine. IMPRESSION: No focal consolidation. RADIA
== END 2020-03-10 23:59 | disposition home or self-care (01) ==
LOC: DI.WCP 13:49
PROVIDERS: ATTEND Family Medicine
DX: R06.02 Shortness of breath (principal)
CPT/HCPCS: 71046

== ENCOUNTER 2020-09-24 11:00 | Outpatient (CLI) | payer OTHER | END 2020-09-24 23:59 | disposition home or self-care (01) | LOC: LAB.R 11:00 | PROVIDERS: ATTEND Family Medicine | DX: R35.0 Frequency of micturition (principal) | CPT/HCPCS: 87086 ==

== ENCOUNTER 2020-12-17 09:18 | Outpatient (CLI) | payer OTHER ==
[2020-12-17] MEDS ORDERED: ALBUTEROL 1 PUFF INH STA (11:26)
== END 2020-12-17 09:19 | disposition home or self-care (01) ==
LOC: RT 09:18
PROVIDERS: ATTEND Nurse Practitioner Family
DX: R06.02 Shortness of breath (principal)
CPT/HCPCS: 94060

== ENCOUNTER 2021-01-22 10:06 | Outpatient (CLI) | payer MEDICARE, OTHER | END 2021-01-22 10:07 | disposition home or self-care (01) | LOC: LAB.N 10:06 | PROVIDERS: ATTEND Family Medicine | DX: R77.8 Other specified abnormalities of plasma proteins (principal) | CPT/HCPCS: 36415; 81599; 83883; 86334 ==

== ENCOUNTER 2021-02-09 08:00 | Outpatient (CLI) | payer MEDICARE, OTHER ==
[2021-02-09 18:37] LABS: BASOPHILS # (AUTO) 0.1 10^3/uL (0.0-0.1); BASOPHILS % (AUTO) 0.9 %; EOSINOPHILS # (AUTO) 0.2 10^3/uL (0.0-0.7); EOSINOPHILS % (AUTO) 2.9 %; HCT - HEMATOCRIT 48.6 % (42.0-52.0); HGB - HEMOGLOBIN 16.4 g/dL (14.0-18.0); LYMPHOCYTES # (AUTO) 2.1 10^3/uL (1.5-3.5); LYMPHOCYTES % (AUTO) 25.9 %; MEAN CORPUSCULAR HGB CONC 33.7 g/dL (32.0-36.0); MEAN CORPUSCULAR VOLUME 94.9 fL (80.0-94.0); MEAN PLATELET VOLUME 10.4 fL (7.4-11.4); MONOCYTES # (AUTO) 0.8 10^3/uL (0.0-1.0); NEUTROPHILS # (AUTO) 4.9 10^3/uL (1.5-6.6); NEUTROPHILS % (AUTO) 59.6 %; PLT - PLATELET COUNT 231 10^3/uL (130-450); RED BLOOD COUNT 5.12 10^6/uL (4.70-6.10); RED CELL DISTRIBUTION WIDTH 12.7 % (12.0-15.0); WHITE BLOOD COUNT 8.2 x10^3/uL (4.8-10.8)
== END 2021-02-09 23:59 | disposition home or self-care (01) ==
LOC: LAB.WCP 08:00
PROVIDERS: ATTEND Family Medicine
DX: R50.9 Fever, unspecified (principal); Z20.822 Contact with and (suspected) exposure to COVID-19
CPT/HCPCS: 36415; 85025; 85651; 86140; U0004

== ENCOUNTER 2021-06-25 10:09 | Outpatient (CLI) | payer MEDICARE, OTHER | END 2021-06-25 10:10 | disposition EMS.NT | LOC: EMS 10:09 | DX: R53.1 Weakness (principal); R53.83 Other fatigue; I10 Essential (primary) hypertension ==

== ENCOUNTER 2021-06-27 23:01 | Outpatient (CLI) | payer MEDICARE, OTHER | END 2021-06-27 23:02 | disposition short-term general hospital (02) | LOC: EMS 23:01 | DX: R47.81 Slurred speech (principal); R53.83 Other fatigue; R53.1 Weakness; R00.0 Tachycardia, unspecified | CPT/HCPCS: A0425; A0429; A0888 ==

== ENCOUNTER 2021-06-28 12:11 | Outpatient (CLI) | payer MEDICARE, OTHER | END 2021-06-28 12:12 | disposition EMS.NT | LOC: EMS 12:11 | DX: I10 Essential (primary) hypertension (principal); R07.89 Other chest pain ==

== ENCOUNTER 2022-09-13 07:43 | Outpatient (CLI) | payer MEDICARE, OTHER ==
[2022-09-13 12:37] LABS: BASOPHILS # (AUTO) 0.1 10^3/uL (0.0-0.1); BASOPHILS % (AUTO) 0.5 %; EOSINOPHILS # (AUTO) 0.1 10^3/uL (0.0-0.7); EOSINOPHILS % (AUTO) 0.9 %; HCT - HEMATOCRIT 44.8 % (42.0-52.0); LYMPHOCYTES # (AUTO) 2.6 10^3/uL (1.5-3.5); MEAN CORPUSCULAR HGB CONC 33.5 g/dL (32.0-36.0); MEAN CORPUSCULAR VOLUME 98.5 fL (80.0-94.0); MEAN PLATELET VOLUME 10.7 fL (7.4-11.4); MONOCYTES # (AUTO) 0.9 10^3/uL (0.0-1.0); MONOCYTES % (AUTO) 8.7 %; NEUTROPHILS # (AUTO) 6.7 10^3/uL (1.5-6.6); NEUTROPHILS % (AUTO) 63.9 %; PLT - PLATELET COUNT 219 10^3/uL (130-450); RED BLOOD COUNT 4.55 10^6/uL (4.70-6.10); RED CELL DISTRIBUTION WIDTH 14.2 % (12.0-15.0); WHITE BLOOD COUNT 10.6 x10^3/uL (4.8-10.8)
[2022-09-13 12:57] LABS: ALBUMIN/GLOBULIN RATIO 1.6 (1.0-2.2); BILIRUBIN,TOTAL 0.8 mg/dL (0.2-1.0); CALCIUM 9.7 mg/dL (8.5-10.3); POTASSIUM 4.3 mmol/L (3.5-5.0); TOTAL PROTEIN 6.5 g/dL (6.7-8.2)
[2022-09-13 13:06] LABS: THYROID STIMULATING HORMONE 0.9 uIU/mL (0.34-5.60)
[2022-09-14 06:09] LABS: VITAMIN D 25-HYDROXY 43.4 ng/mL (30.0-100.0)
[2022-09-15 13:10] LABS: ANTINUCLEAR ANTIBODIES IFA Negative (.)
== END 2022-09-13 07:44 | disposition home or self-care (01) ==
LOC: LAB.N 07:43
PROVIDERS: ATTEND Family Medicine
DX: R23.2 Flushing (principal); R63.5 Abnormal weight gain; R53.83 Other fatigue; R06.02 Shortness of breath; R07.89 Other chest pain; L29.9 Pruritus, unspecified; R10.13 Epigastric pain
CPT/HCPCS: 36415; 80053; 82306; 82550; 82607; 82746; 83690; 84443; 85025; 85379; 85651; 86038

== ENCOUNTER 2022-12-06 13:21 | Outpatient (CLI) | payer MEDICARE, OTHER | END 2022-12-06 13:22 | disposition home or self-care (01) | LOC: LAB.N 13:21 | PROVIDERS: ATTEND Internal Medicine | DX: Z20.822 Contact with and (suspected) exposure to COVID-19 (principal) ==

== ENCOUNTER 2022-12-30 07:41 | Day surgery (SDC) | payer MEDICARE, OTHER ==
[~2022-12-30 07:41] MED LIST changes: +CYCLOPENTOLATE 1% OPHTH DROPS 2 ML ONE; +KETOROLAC 0.45% OPHTH DROPS ONE; -LACTATED RINGERS 1,000 ML IV ONE; +PHENYLEPHRINE 2.5% OPHTH 2 ML DROPS ONE; +PROPARACAINE 0.5% OPHTH DROPS 15 ML ONE; -ceFAZolin 2 GM/50 ML 50 ML IV ONE
[2022-12-30] MEDS ORDERED: LACTATED RINGERS 1,000 ML IV ONE (07:56)
[2022-12-30] MEDS ORDERED: TRIAMCIN/MOXIFLOX OPHTHALMIC 0.6 ML VIAL IO ONE ×2 (09:08→09:50)
[2022-12-30] MEDS ORDERED: BSS/LIDOCAINE/EPINEPHRINE 1 ML VIAL ONE (09:08)
[2022-12-30] MEDS ORDERED: VANCOMYCIN OPHTH (TOPICAL) 10 MG/ML SYRINGE ONE (09:08)
[2022-12-30] MEDS ORDERED: BRIMONIDINE 0.2% OPHTH DROPS 5 ML ONE (09:08)
[2022-12-30] MEDS ORDERED: EPINEPHrine 1 MG/ML AMP ONE (09:08)
[2022-12-30] MEDS ORDERED: TIMOLOL 0.5% OPHTH DROPS ONE (09:08)
--- NOTE | 2022-12-30 09:14 | ANESTHESIA ---
Pre-Anesthesia VS, & Labs - Diagnosis right nuclear cataract - Procedure right cataract extraction with IOL Vital Signs: Temp Pulse Resp BP Pulse Ox O2 Flow Rate 36.4 C L 71 20 128/80 97 12/30/22 07:50 12/30/22 07:50 12/30/22 07:50 12/30/22 07:50 12/30/22 07:50 Height: 6 ft 1 in Weight (kg): 128 kg Body Mass Index: 37.2 BMI Classification: Obese - NPO >8 hours Home Medications and Allergies Home Medications: Ambulatory Orders Losartan [Cozaar] 1 tab PO DAILY 12/30/22 Ascorbic Acid/Bioflavonoids [Vit C-Bioflavonoids Tab SA] 1 each PO DAILY 03/20/13 Multivits-Min/FA/Lycopene/Lut [Centrum Silver Tablet] 1 each PO DAILY 03/20/13 Pramipexole Di-HCl [Mirapex] 1 mg PO QDAC 03/20/13 Testosterone [Fortesta] 40 gm TD DAILY 03/20/13 Gabapentin 300 mg PO TID 08/12/17 Magnesium Citrate 1 tab PO DAILY 07/31/18 Pravastatin [Pravachol] 40 mg PO DAILY 07/31/18 hydrOXYzine pamoate [Hydroxyzine Pamoate] 100 mg PO DAILY PRN 07/31/18 Losartan [Cozaar] 1 tab PO DAILY 12/30/22 Allergies/Adverse Reactions: Allergies Allergy/AdvReac Type Severity Reaction Status Date / Time No Known Drug Allergies Allergy Verified 12/30/22 08:10 Anes History & Medical History - Anesthetic History Anesthesia Complications: reports: No previous complications - Medical History Cardiovascular: reports: Hypertension, High cholesterol Pulmonary: reports: Sleep apnea, CPAP use Gastrointestinal: reports: None Urinary: reports: None Musculoskeletal: reports: Osteoarthritis Endocrine/Autoimmune: reports: None Blood Disorders: reports: None Skin: reports: Other Smoking Status: Former smoker - Surgical History General: reports: Hiatal hernia repair, Colonoscopy Eyes Ears Nose Throat (EENT): reports: Cataracts Orthopedic: reports: Knee replacement, Spine surgery Exam General: Alert, Oriented x3 Dental: Dentures full Upper, Dentures full Lower Mouth Opening: Greater than 4 Fingerbreadths Mallampati classification: II Thyromental Distance: greater than 6 cm Respiratory: Lungs clear Cardiovascular: Regular rate Plan Anesthesia Type: MAC Consent for Procedure(s) Verified and Reviewed: Yes Code Status: Attempt Resuscitation ASA classification: 2-Mild systemic disease Is this case an emergency?: No
[2022-12-30] MEDS ORDERED: MIDAZOLAM 2 MG/2 ML VIAL ONE (09:16)
[2022-12-30] MEDS ORDERED: fentaNYL 100 MCG/2 ML VIAL ONE (09:41)
[2022-12-30] MEDS ORDERED: BRIMONIDINE 0.2% OPHTH DROPS 5 ML OPTH ONE (09:49)
[2022-12-30] MEDS ORDERED: EPINEPHrine 1 MG/ML AMP IR ONE (09:49)
[2022-12-30] MEDS ORDERED: TIMOLOL 0.5% OPHTH DROPS OPTH ONE (09:50)
[2022-12-30] MEDS ORDERED: BSS/LIDOCAINE/EPINEPHRINE 1 ML SYRINGE IO ONE (09:50)
[2022-12-30] MEDS ORDERED: PROPARACAINE 0.5% OPHTH DROPS 15 ML RIGHTEYE ONE (09:51)
[2022-12-30] MEDS ORDERED: VANCOMYCIN OPHTH (TOPICAL) 10 MG/ML SYRINGE TOP ONE (09:51)
[2022-12-30] MEDS ORDERED: LACTATED RINGERS 500 ML IV ONE (10:03)
--- NOTE | 2022-12-30 10:12 | OPERATIVE REPORT ---
Operative Report - Other Other Information/Narrative: Date of Surgery: 12/30/22 Preop Dx: Visually significant cataract right eye. Cataract surgery was performed in the left eye on . Postop Dx: Same Procedure: Phacoemulsification with posterior chamber intraocular lens implant right eye Surgeon: Dr. Gomez Conroy Anesthesia: Monitored anesthesia care Complications: None Operative Indications: This is a 67-year-old M with progressive vision loss in the right eye due to 2+ nuclear sclerotic cataract. Best corrected visual acuity was 20/30 with glare to 20/40 vision in the right eye. Indications for surgery were: - Overall decrease in vision - Difficulty seeing street signs - Difficulty driving in low light or at night - Difficulty driving at night because of headlights from other vehicles - Difficulty with glare or bright lights in any situation The patient was consented at length concerning the risks and benefits of cataract surgery after which the patient expressed a desire to proceed with surgery. Operative Procedure: The patient was taken into OR#3 and placed under monitored anesthesia care. A surgical time-out was conducted confirming correct patient, correct procedure, and correct surgical site. The patient was given topical anesthesia and then prepped and draped in the usual sterile fashion. The eye was entered at the 6 and 3 oclock positions. Intracameral Shugarcaine was injected into the anterior chamber followed by a dispersive viscoelastic. A continuous-tear curvilinear capsulorhexis was performed. The nucleus was hydrodissected and phacoemulsified. The cortex was evacuated using automated infusion and aspiration. A cohesive viscoelastic was injected into the capsular bag and a 21.0 diopter intraocular lens was inserted into the bag. Infusion and aspiration were used to evacuate the viscoelastic materials from the eye. The wounds were hydrated and the eye inflated to physiologic pressure using balanced salt solution. Approximately 0.25ml of a mixture of triamcinolone and moxifloxacin was injected trans-sclerally into the vitreous in the inferotemporal quadrant using a 30 gauge cannula. An additional 0.25ml of a mixture of triamcinolone and moxifloxacin was injected subconjunctivally in the superior quadrant for infection and inflammation prophylaxis. Wound integrity was checked with Weck-Jillian sponges. The patient was taken from the operating room in good condition and given post-op instructions.
[2022-12-30 10:19] VITALS: BP 117/66
--- NOTE | 2022-12-30 10:27 | ANESTHESIA POST OP EVALUATION ---
Anesthesia Post Eval - Post Anesthesia Eval Vitals: Last Vital Signs Temp 36.7 C 12/30/22 10:17 Pulse 71 12/30/22 10:17 Resp 97 H 12/30/22 10:17 BP 117/66 12/30/22 10:17 Pulse Ox 20 L 12/30/22 10:17 O2 Flow Rate CV Function Including HR & BP: Stable Pain Control: Satisfactory Nausea & Vomiting: Negative Mental Status: Baseline Respiratory Status: Airway Patent Hydration Status: Satisfactory Anesthesia Complications: None
== END 2022-12-30 07:42 | disposition home or self-care (01) ==
LOC: SDS 07:41
PROVIDERS: ATTEND Ophthalmology
DX: H25.11 Age-related nuclear cataract, right eye (principal); G47.33 Obstructive sleep apnea (adult) (pediatric); N40.0 Benign prostatic hyperplasia without lower urinary tract symptoms; F41.9 Anxiety disorder, unspecified; E66.9 Obesity, unspecified; Z68.37 Body mass index [BMI] 37.0-37.9, adult; Z98.42 Cataract extraction status, left eye; Z87.891 Personal history of nicotine dependence
CPT/HCPCS: 66984; A9270; J3490; J7120

== ENCOUNTER 2023-03-17 10:52 | Outpatient (CLI) | payer MEDICARE, OTHER ==
[2023-03-17 17:58] LABS: ALBUMIN 4.2 g/dL (3.2-5.5); ALBUMIN/GLOBULIN RATIO 1.6 (1.0-2.2); ALKALINE PHOSPHATASE 47 IU/L (42-121); ALT ALANINE AMINOTRANSFERASE 33 IU/L (10-60); AST ASPARTATE AMINOTRANSFERASE 19 IU/L (10-42); BILIRUBIN,TOTAL 0.8 mg/dL (0.2-1.0); BUN - BLOOD UREA NITROGEN 13 mg/dL (6-20); CALCIUM 9.4 mg/dL (8.5-10.3); CARBON DIOXIDE - CO2 31 mmol/L (21-32); CHLORIDE 107 mmol/L (101-111); CHOL/HDL RATIO 3.1 (<5.0); CHOLESTEROL 161 mg/dL; GAMMA GLUTAMYL TRANSPEPTIDASE 29 IU/L (8-55); GFR - MDRD 75 (>89); GLUCOSE 87 mg/dL (70-100); HDL CHOLESTEROL 52 mg/dL; LDL CHOLESTEROL,CALCULATED 83 mg/dL; LDL/HDL RATIO 1.6 (<3.6); POTASSIUM 4.3 mmol/L (3.5-5.0); SODIUM 142 mmol/L (135-145); TOTAL PROTEIN 6.9 g/dL (6.7-8.2); TRIGLYCERIDES 128 mg/dL; VLDL CHOLESTEROL 26 mg/dL
[2023-03-17 18:06] LABS: BASOPHILS # (AUTO) 0.1 10^3/uL (0.0-0.1); BASOPHILS % (AUTO) 0.8 %; EOSINOPHILS # (AUTO) 0.3 10^3/uL (0.0-0.7); EOSINOPHILS % (AUTO) 3.4 %; HCT - HEMATOCRIT 47.3 % (42.0-52.0); HGB - HEMOGLOBIN 15.9 g/dL (14.0-18.0); LYMPHOCYTES # (AUTO) 2.1 10^3/uL (1.5-3.5); LYMPHOCYTES % (AUTO) 27.7 %; MEAN CORPUSCULAR HGB CONC 33.6 g/dL (32.0-36.0); MEAN CORPUSCULAR VOLUME 98.1 fL (80.0-94.0); MEAN PLATELET VOLUME 10.2 fL (7.4-11.4); MONOCYTES # (AUTO) 0.9 10^3/uL (0.0-1.0); MONOCYTES % (AUTO) 11.7 %; NEUTROPHILS # (AUTO) 4.3 10^3/uL (1.5-6.6); NEUTROPHILS % (AUTO) 55.6 %; PLT - PLATELET COUNT 217 10^3/uL (130-450); RED BLOOD COUNT 4.82 10^6/uL (4.70-6.10); RED CELL DISTRIBUTION WIDTH 13.3 % (12.0-15.0); WHITE BLOOD COUNT 7.7 x10^3/uL (4.8-10.8)
[2023-03-17 20:30] LABS: ESTIMATED AVERAGE GLUCOSE 123 mg/dL (70-100); HEMOGLOBIN A1c% 5.9 % (4.27-6.07)
[2023-03-18 05:14] LABS: HCV AB Non Reactive (Non Reactive)
== END 2023-03-17 10:53 | disposition home or self-care (01) ==
LOC: LAB.N 10:52
PROVIDERS: ATTEND Nurse Practitioner Family
DX: I10 Essential (primary) hypertension (principal); Z11.59 Encounter for screening for other viral diseases; E29.1 Testicular hypofunction; Z51.81 Encounter for therapeutic drug level monitoring; D75.89 Other specified diseases of blood and blood-forming organs; N40.1 Benign prostatic hyperplasia with lower urinary tract symptoms; E66.9 Obesity, unspecified; R73.9 Hyperglycemia, unspecified
CPT/HCPCS: 36415; 80053; 80061; 82607; 82746; 82977; 83036; 83721; 84153; 84402; 84403; 85025; 86803